=== PATIENT | female | born 1965 | race African-American/Black ===

== ENCOUNTER → 2019-03-08 | Emergency (ER) | payer OTHER, MEDICAID ==
[~2019-03-08] VITALS: Ht 162.6 cm; Wt 53.0 kg
[~2019-03-08] MED LIST: SODIUM CHLORIDE 0.9% 1,000 ML IV ONE
[2019-03-08 15:18] VITALS: BP 110/60
== END | disposition left against medical advice (07) ==
LOC: ER 15:11 → EDBD 15:11
DX: G93.40 Encephalopathy, unspecified (principal); T40.7X1A Poisoning by cannabis (derivatives), accidental (unintentional), initial encounter; Y92.89 Other specified places as the place of occurrence of the external cause
CPT/HCPCS: 99283; J7030